=== PATIENT | female | born 1985 | race Caucasian/White ===

== ENCOUNTER 2020-04-02 21:09 | Emergency (ER) | payer OTHER, SELFPAY ==
--- NOTE | ~2020-04-02 | CT_ITS ---
EXAMINATION: CT brain wo con DATE: 04/02/2020 21:54 INDICATION: Head injury. TECHNIQUE: Computed tomography (CT) of the head was performed without intravenous contrast. The mA wa s adjusted according to patient size. Iterative reconstruction technique was employed. The dose-lengt h product was 605.33 mGy-cm. COMPARISON: None FINDINGS: There is no intracranial hemorrhage, acute infarction, or abnormal intracranial mass lesion . The ventricles are normal in size. The paranasal sinuses are clear. The orbits are normal. The mast oid air cells are normal. IMPRESSION: 1. Normal brain. Reviewed, dictated and finalized at location A. IMPRESSION: 1. Normal brain.
--- NOTE | ~2020-04-02 | CT_ITS ---
EXAMINATION: CT cervical spine wo con DATE: 04/02/2020 21:55 INDICATION: Left-sided neck pain. Head injury. TECHNIQUE: Computed tomography (CT) of the cervical spine was performed without intravenous contrast. Automated exposure control and iterative reconstruction technique were employed. The dose-length pro duct was 372.30 mGy-cm. COMPARISON: None FINDINGS: There is kyphosis of cervical spine. Vertebral body heights are normal. There is mildly dec reased disc height at C5-C6 and C6-C7. The following disc levels are specifically discussed: C2-C3: There is no uncovertebral joint osteoarthritis. There is mild bilateral facet joint osteoarthr itis. There is no neural foraminal stenosis. There is no central canal stenosis. C3-C4: There is mild bilateral uncovertebral joint osteoarthritis. There is mild bilateral facet join t osteoarthritis. There is no neural foraminal stenosis. There is no central canal stenosis. C4-C5: There is mild bilateral uncovertebral joint osteoarthritis. There is no facet joint osteoarthr itis. There is no neural foraminal stenosis. There is mild central canal stenosis. C5-C6: There is moderate bilateral uncovertebral joint osteoarthritis. There is mild bilateral facet joint osteoarthritis. There is mild bilateral neural foraminal stenosis. There is mild central canal stenosis. C6-C7: There is mild bilateral uncovertebral joint osteoarthritis. There is no facet joint osteoarthr itis. There is no neural foraminal stenosis. There is mild central canal stenosis. C7-T1: There is no uncovertebral joint osteoarthritis. There is moderate bilateral facet joint osteoa rthritis. There is no neural foraminal stenosis. There is no central canal stenosis. IMPRESSION: 1. No fracture. 2. Mild cervical spondylosis. Reviewed, dictated and finalized at location A.
[2020-04-02 21:19] VITALS: BP 118/74; PULSE 101; RESP 20; TEMP 37; O2SAT 99
--- NOTE | 2020-04-02 21:39 | ED.NECK ---
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 She slipped in some water in her garage and fell straight backwards on her head and felt a pop in her neck. The side of her neck hurts towards her shoulder about 9 out of 10. She is wearing a cervical collar. She also has some pain in the back of her head. She has no nausea. She is thinking clearly. She did not have a loss of consciousness. Her only prescription medication is Zoloft. She does not smoke cigarettes, she had 1 alcoholic beverage today, she does not do marijuana. 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 She has not been sick in the last week. Her surgeries include cholecystectomy and . complaint: neck pain and neck injury Onset (ago): hour(s) Place: home Radiation: left upper extremity Severity: moderate Severity scale (1-10): 9 Duration: constant Relieving factors: none and immobilization Context: fall Associated symptoms: tingling Treatments prior to arrival: cervical collar Related Data Allergies Allergy/AdvReac Type Severity Reaction Status Date / Time azithromycin Allergy Mild Verified 09/22/12 14:12 Review of Systems Review of Systems: Narrative: CONSTITUTIONAL: Denies fever, chills, or sweats. EYES: Denies visual changes, redness, or discharge. ENT: Denies rhinorrhea, congestion, sore throat, or otalgia. CARDIOVASCULAR: Denies chest pain, palpitations, or edema. RESPIRATORY: Denies cough or dyspnea. GASTROINTESTINAL: Denies abdominal pain, nausea, vomiting, or diarrhea. GENITOURINARY: Denies dysuria or hematuria. SKIN: Denies rash or itching. MUSCULOSKELETAL: Denies back pain, but has neck pain and headache NEUROLOGIC: He has headache, numbness, or weakness. PSYCHIATRIC: Denies anxiety or depression. [facility] Past Medical History Medical History Mood disorder Surgical History Surgical History History of History of cholecystectomy Social History Social History (Updated 04/02/20 @ 21:43 by Heather Arias MD) Smoking status: Never smoker Alcohol intake: current Substance use: never Exam Narrative: Exam Narrative: GENERAL: Well-appearing, well-nourished, and in no acute distress. HEAD: Normocephalic, atraumatic. EYES: PERRLA and EOMI. ENT: Nares clear, no rhinorrhea or epistaxis. Mucous membranes moist. NECK: Tenderness on the posterior right CHEST: Clear to auscultation. No respiratory distress. HEART: Regular rate and rhythm. No murmur heard. Normal peripheral pulses. ABDOMEN: Soft, nontender, nondistended, normal active bowel sounds. EXTREMITIES: . No edema. SKIN: Warm, dry, no rash. NEURO: No focal deficits. Alert and oriented x3. PSYCH: Normal mood and affect. Course Reevaluation(s) Reevaluation #1: Went in to tell the patient about her good test results. She said the pain is much better, but she still would like to have a muscle relaxer. I gave her 2 days off work, [place], and methocarbamol. She will follow-up with her primary care physician Dr. Salinas in [place]. If she is not better she will need an MRI. Date: 04/02/20 Time: 22:43 Vital Signs Vital signs: Vital Signs Temperature 98.6 F 04/02/20 21: Pulse Rate 101 H 04/02/20 21: Respiratory Rate 20 04/02/20 21:19 Blood Pressure 118/74 04/02/20 21:19 Pulse Oximetry 99 04/02/20 21:19 Temperature 98.6 F 04/02/20 21: Pulse Rate 91 04/02/20 22:20 Respiratory Rate 18 04/02/20 22:20 Blood Pressure 123/87 04/02/20 22:20 Pulse Oximetry 97 04/02/20 22:20 MDM - Neck Pain/Injury Medical Records Attestation: I reviewed the patient's medical records. Lab Data Attestation: I reviewed the patient's lab results. Result amandaa
[2020-04-02] MEDS: MORPHINE SULFATE 4 MG/ML INJ IV PUSH (22:06)
[2020-04-02] MEDS: ONDANSETRON INJ 4 MG/2 ML VIAL IV PUSH (22:06)
[2020-04-02 22:11] VITALS: BP 114/79; PULSE 102; RESP 16; O2SAT 97
[2020-04-02 22:15] LABS: Basophils Absolute Auto 0.1 K/mm3 (0.0-0.1); Basophils Percent Auto 0.7 % (0.2-1.2); Eosinophils Absolute Auto 0.4 K/mm3 (0-0.3); Eosinophils Percent Auto 3.8 % (0-4.4); Hematocrit 38.4 % (37.0-47.0); Hemoglobin 13.4 g/dL (12.0-15.0); Immature Granulocyte Absolute 0.03 K/mm3 (0.00-0.031); Immature Granulocyte Percent A 0.3 % (0-0.5); Lymphocytes Absolute Auto 2.88 K/mm3 (0.9-3.2); Lymphocytes Percent Auto 29.2 % (18.3-44.2); Mean Corpuscular HGB Conc 34.9 g/dl (32-36); Mean Corpuscular Hemoglobin 32.1 pg (26-34); Mean Corpuscular Volume 92.1 fl (80-100); Mean Platelet Volume 9.3 fl (7.4-10.4); Monocytes Absolute Auto 0.7 K/mm3 (0.1-0.6); Monocytes Percent Auto 7.3 % (2.6-8.5); Neutrophils Absolute Auto 5.8 K/mm3 (1.3-6.7); Neutrophils Percent Auto 58.7 % (45.5-73.1); Platelet Count Result 267 k/mm3 (150-375); Red Blood Count 4.17 M/mm3 (4.2-5.4); Red Cell Distribution Width 12.3 % (11.5-14.5); White Blood Count 9.9 K/mm3 (4.5-10.0)
[2020-04-02 22:20] VITALS: BP 123/87; PULSE 91; RESP 18; O2SAT 97
[2020-04-02 22:24] LABS: INR 1.1; Prothrombin Time 13.4 Seconds (11.1-14.7)
[2020-04-02 22:26] LABS: Ethanol < 10 mg/dL (<10)
[2020-04-02 22:29] LABS: Alanine Aminotransferase 15 U/L (4-35); Albumin Level 4.4 g/dL (3.5-5.1); Alkaline Phosphatase 61 U/L (38-126); Aspartate Amino Transferase 24 U/L (14-36); Bilirubin,Total 0.2 mg/dL (0.2-1.3); Blood Urea Nitrogen 16 mg/dL (7-17); Carbon Dioxide 26 mmol/L (22-30); Chloride 104 mmol/L (98-107); Estimated CRCL calculation 87 ml/min; Estimated Glomerular Filt Rate > 60; Glucose 91 mg/dL (65-105); Potassium 3.7 mmol/L (3.4-5.0); Sodium 139 mmol/L (137-145)
--- NOTE | 2020-04-02 22:33 | PC.NURSE ---
pt states tenseness is gone, pain is still there. pt states it is tolerable and doesn't want additional medication. md notified.
[2020-04-02 22:50] VITALS: BP 113/65; PULSE 90; RESP 16; O2SAT 97
== END 2020-04-02 22:54 | disposition home or self-care (01) ==
PROVIDERS: Emergency Provider Emergency Medicine
DX: S16.1XXA Strain of muscle, fascia and tendon at neck level, initial encounter (principal); S09.90XA Unspecified injury of head, initial encounter; F39 Unspecified mood [affective] disorder; W01.0XXA Fall on same level from slipping, tripping and stumbling without subsequent striking against object, initial encounter
CPT/HCPCS: 36415; 70450; 72125; 80053; 80307; 85025; 85610; 96374; 96375; 99284; J2270; J2405; L0140

== ENCOUNTER → 2020-12-05 08:53 | Outpatient (CLI) | payer OTHER, SELFPAY ==
--- NOTE | ~2020-12-05 | US_ITS ---
US abdomen complete DATE: 12/05/2020 09:18 INDICATION: Hepatomegaly TECHNIQUE: Real-time imaging and Doppler analysis of the abdomen COMPARISON: None FINDINGS: The gallbladder is surgically absent. The common bile duct measures 6.1 mm, but likely with in normal range postcholecystectomy. Normal hepatopedal portal venous flow direction. No hepatic or pancreatic space-occupying mass lesion is evident. Normal splenic size. No renal mass lesion or hydronephrosis. Normal caliber of the abdominal aorta. The inferior vena cava is unremarkable. IMPRESSION: Status post cholecystectomy Reviewed, dictated and finalized at Location [facility]. Reviewed, dictated and finalized at location B. IMPRESSION: Status post cholecystectomy
== END ==
PROVIDERS: PCP Internal Medicine; Visit Provider Internal Medicine
DX: R16.0 Hepatomegaly, not elsewhere classified (principal); Z90.49 Acquired absence of other specified parts of digestive tract
CPT/HCPCS: 76700